=== PATIENT | male | born 1960 | race Caucasian/White ===

== ENCOUNTER 2019-04-01 21:00 | Emergency (ER) | payer OTHER ==
[~2019-04-01] VITALS: Ht 195.6 cm; Wt 172.4 kg
--- NOTE | 2019-04-01 21:10 | NUR ---
PT [id number] FR HOME FOR C/O BILATERAL LOWER EXTREMITY DULL PAIN X 1 WEEK, DENIES TRAUMA, HX DVT, USING ICY HOT & TAKING TYLENOL W/ NO RELIEF. PT AOX4. RESP EVEN AND UNLABORED. PT ON MONITOR IN BED 4. WILL CONTINUE TO MONITOR.
--- NOTE | 2019-04-01 21:16 | NUR ---
PA AT BEDSIDE FOR EVAL
--- NOTE | 2019-04-01 21:19 | NUR ---
U/S AT BEDSIDE FOR BILAT VENOUS DUPLEX
[2019-04-01] MEDS ORDERED: DEXAMETHASONE SOD PHOSPHATE 4 MG/ML VIAL IM ONE (21:30)
[2019-04-01] MEDS ORDERED: KETOROLAC TROMETHAMINE INJ 60 MG/2 ML VIAL IM ONE (21:30)
[2019-04-01] MEDS ORDERED: KETOROLAC TROMETHAMINE INJ 30 MG/ML VIAL ONE (21:41)
[2019-04-01] MEDS ORDERED: DEXAMETHASONE SOD PHOSPHATE 10 MG/ML VIAL ONE (21:41)
[2019-04-01] MEDS ORDERED: IV NS 0.9% 1,000 ML BAG IV ONE (22:00)
--- NOTE | 2019-04-01 22:17 | NUR ---
BLOOD DRAWN AND GIVEN TO LAB
[2019-04-01 22:21] LABS: BASOPHILS # (AUTO) 0.1 /CMM (0.0-0.2); BASOPHILS % (AUTO) 1.3 % (0.0-2.0); EOSINOPHILS % (AUTO) 6.3 % (0.0-6.0); HEMATOCRIT 37 % (39-51); HEMOGLOBIN 12.6 g/dL (13.5-17.5); LYMPHOCYTES # (AUTO) 1.3 /CMM (0.8-4.8); LYMPHOCYTES % (AUTO) 16.9 % (20.0-44.0); MEAN CORPUSCULAR HGB CONC 34 g/dl (31.0-36.0); MEAN CORPUSCULAR VOLUME 90 fL (80-96); MONOCYTES # (AUTO) 0.7 /CMM (0.1-1.30); MONOCYTES % (AUTO) 8.5 % (2.0-12.0); NEUTROPHILS # (AUTO) 5.2 /CMM (1.8-8.9); PLATELET COUNT (AUTO) 174 /CMM (150-450); RED BLOOD CELL COUNT(AUTO) 4.15 MIL/uL (4.5-6.0); WHITE BLOOD COUNT (AUTO) 7.7 K/uL (4.3-11.0)
--- NOTE | 2019-04-01 22:34 | NUR ---
RADIOLOGY AT BEDSIDE FOR XRAY
[2019-04-01 22:35] LABS: CALCIUM, SERUM 8.1 mg/dL (8.5-10.1); CREATININE 1.7 mg/dL (0.6-1.3)
[2019-04-01 22:41] LABS: ALBUMIN 3.2 g/dL (3.4-5.0); BILIRUBIN,DIRECT 0.1 mg/dL (0.0-0.2); BILIRUBIN,TOTAL 0.3 mg/dL (0.2-1.0); TOTAL PROTEIN, SERUM 6.6 g/dL (6.4-8.2)
--- NOTE | 2019-04-01 23:01 | NUR ---
SPOKE TO MD JANI AT [facility] UNABLE TO BE REACHED, AND PANEL CALL MAY BE DELAYED
[2019-04-01] MEDS ORDERED: ENOXAPARIN SODIUM 80 MG/0.8 ML DISP.SYRIN SQ ONE (23:25)
[2019-04-01] MEDS ORDERED: ENOXAPARIN SODIUM 40 MG/0.4 ML DISP.SYRIN SQ ONE (23:25)
[2019-04-01] MEDS ORDERED: ENOXAPARIN SODIUM 120 MG/0.8 ML DISP.SYRIN SQ ONE (23:30)
--- NOTE | 2019-04-02 00:11 | NUR ---
CHRISTOFER BLAKE SPOKE TO DR. LAMB @ [facility] AND ACCEPTED PT. AWAITING CALL BACK FROM [facility] FOR BED AVAILABILITY.
--- NOTE | 2019-04-02 00:24 | NUR ---
Patient is resting comfortably in bed with eyes closed. Easily aroused. VSS.
--- NOTE | 2019-04-02 00:28 | NUR ---
PER DEVELOPER ADVISOR. CALLING BED CONTROL FOR PLACEMENT. WILL CALL BACK SHORTLY
--- NOTE | 2019-04-02 02:01 | NUR ---
Patient is resting comfortably in bed with eyes closed. Easily aroused. VSS.
--- NOTE | 2019-04-02 02:43 | NUR ---
[facility] ([phone]. ROOM [facility]
--- NOTE | 2019-04-02 02:51 | NUR ---
[facility] ETA 1-4 HRS. TRIP #[id number]
--- NOTE | 2019-04-02 04:01 | NUR ---
[facility] "ONLY TRANSPORTS PSYCH PATIENTS". CALLED [facility] WITH [employer]. ETA [id number] TRIP #[phone]
[2019-04-02 04:11] VITALS: BP 141/78
--- NOTE | 2019-04-02 04:24 | NUR ---
REPORT GIVEN TO JR AZUL FOR [facility]ARNEST
--- NOTE | 2019-04-02 05:02 | NUR ---
[facility]
== END 2019-04-02 05:30 | disposition short-term general hospital (02) ==
LOC: ER 21:11
DX: I82.411 Acute embolism and thrombosis of right femoral vein (principal); I87.8 Other specified disorders of veins; D64.9 Anemia, unspecified; M10.9 Gout, unspecified; N19 Unspecified kidney failure; E66.01 Morbid (severe) obesity due to excess calories; I10 Essential (primary) hypertension; Z68.42 Body mass index [BMI] 45.0-49.9, adult; Z86.711 Personal history of pulmonary embolism
CPT/HCPCS: 36415; 71045; 80048; 80076; 85025; 85730; 93005; 93970; 96372 ×3; 99285; J1100; J1650 ×2; J1885; J7030